=== PATIENT | female | born 1990 | race Caucasian/White ===

== ENCOUNTER 2019-02-02 16:55 | Emergency (ER) | payer BC ==
[2019-02-02 17:12] VITALS: BP 98/66
--- NOTE | 2019-02-02 17:15 | UC ---
Throat Pain/Nasal Jus HPI - HPI Summary HPI Summary: Patient presents to urgent care stating's for approximately 10 days she's had progressive sinus congestion postnasal drip. The last 4 days patient has had increased left ear pain has lost her voice. Patient states initially had some yellow drainage from her nose but now is more clear. Patient states she's noticed that when she has food of extreme temperatures: Heart she has increased pain in the left ear. Patient denies chest pain or shortness of breath. Patient has abdominal pain. Patient has been using ibuprofen but no other decongestants. No sick contacts. Patient does not have any hobbies related to chemicals or dust. Patient states she is not . Patient's medications as entered EMR by triage and was referred here. 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 Hx Last Menstrual Period: implant ?: No Pain Intensity: 2 - Allergies/Home Medications Allergies/Adverse Reactions: Allergies Allergy/AdvReac Type Severity Reaction Status Date / Time No Known Allergies Allergy Verified 02/02/19 17:03 Home Medications: Home Medications Levothyroxine TAB* [Synthroid 100 MCG TAB*] 1 tab PO DAILY 02/02/19 [History Confirmed 02/02/19] busPIRone TAB* [Buspar TAB*] 1 tab PO DAILY 02/02/19 [History Confirmed 02/02/19 ] carBAMazepine TAB(*) [Tegretol TAB(*)] 1 tab PO BID 02/02/19 [History Confirmed 02/02/19] hydrOXYzine HCL TAB* [Atarax TAB 50 MG *] 1 tab PO BEDTIME 02/02/19 [History Confirmed 02/02/19] traZODone TAB* [Desyrel TAB*] 1 tab PO BEDTIME 02/02/19 [History Confirmed 02/02] PMH/Surg Hx/FS Hx/Imm Hx - Surgical History Surgical History: None - Social History Alcohol Use: None Substance Use Type: Marijuana Smoking Status (MU): Never Smoked Tobacco Review of Systems All Other Systems Reviewed And Are Negative: Yes ENT: Positive: Nasal Discharge, Sinus Congestion, Sinus Pain/Tenderness, Other - laryngitis Physical Exam - Summary Physical Exam Summary: Vital Signs Reviewed: Yes A+Ox3, no distress, mild laryngitis Eyes: Conjunctiva Clear, AVE. EOM intact and full ENT: Hearing grossly normal right TM - no fluid, erythema left TM + fluid, mild erythema, no mastoid pain, turbinates inflammed and boggy, + PND, + TTP max sinus left + mild TTP with palp left upper molar - no erythema, fluctuance , drainage, edema mmoist, uvula midline, no exudate, no erythema Neck: Positive: Supple Respiratory: Positive: No respiratory distress, No accessory muscle use + CTA throughout no w/r Cardiovascular: RRR nl s1, s2 no m/r CBT <2 sec abd soft + BS nt/nd no guarding, no distension Musculoskeletal Exam: DELONG x 4 without difficulty Strength Intact, ROM Intact Neurological: Positive: Alert, + sensation throughout Psychological: Positive: Normal Response To examiner Skin: Positive: no rash, no ecchymosis Triage Information Reviewed: Yes Vital Signs: Initial Vital Signs Temp 99.8 F 02/02/19 17:08 Pulse 77 02/02/19 17:08 Resp 16 02/02/19 17:08 BP 98/66 02/02/19 17:08 Pulse Ox 99 02/02/19 17:08 Throat Pain/Nasal Course/Dx - Course Course Of Treatment: Patient presents to urgent care reporting 10 days of progressive left ear pain since congestion postnasal drip. The patient stated last 3-4 days left ear pain got much worse and she's been having some popping sounds. Patient denies any drainage. Patient taken Motrin but no decongestant. Patient denies fevers or chills. Patient does have fatigue. Patient works as a home health. On exam vital signs are stable. Patient does have fluid left ear. Sinuses are inflamed and boggy. Patient was some mild postnasal drip. Patient does have tenderness along the mastoid sinuses as well as along the left upper molar. No obvious carry. Discussed with patient at length. We'll start Flonase as well as antibiotic. Secretion discussed. Recommend humidified air. Return precautions. 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 Questions asked. Return precautions discussed. - Differential Dx/Diagnosis Provider Diagnosis: Left acute serous otitis media, Sinusitis Discharge ED - Sign-Out/Discharge Documenting (check all that apply): Patient Departure All imaging exams completed and their final reports reviewed: No Studies - Discharge Plan Condition: Stable Disposition: HOME Prescriptions: Amoxicillin/Clavulanate TAB* [Augmentin TAB 875*] 875 mg PO BID #20 tab Fluticasone NASAL SPRAY 50MCG* [Flonase NASAL SPRAY 50MCG*] 1 spray BOTH NARES DAILY #1 btl Patient Education Materials: Sinusitis (ED), Serous Otitis Media (ED) Forms: *Work Release Referrals: Kate Aguilar [employer] [Primary Care Provider] - Additional Instructions: - Stay well hydrated. Drink plenty of non-alcoholic, non-caffinated beverages. - Alternate ibuprofen (Advil, Motrin) 600mg and Tylenol every 3 hours for pain or fever. Take with food. Do NOT take for more than 4-5 days. - These infections are spread by secretions - do NOT share eating or drinking utensils - clean items you share with other people such as cell phones, computer mouse, TV remote, computer tablets,etc. Once you have been antibiotics for 2 days, change your toothbrush and your pillowcase. - get plenty of restful sleep - humidify the air in the room where you sleep - boil water, run a hot steam shower, vaporizer, cups of water by heat register -gargle and spit with warm salt water, 2-3 times a day - okay to take over the counter decongestant and cough medication - use nasal spray as prescribed - contact your doctor or return with questions or concerns - Billing Disposition and Condition Condition: STABLE Disposition: Home
== END 2019-02-02 17:43 | disposition home or self-care (01) ==
LOC: UCEAST 16:55
DX: J32.9 Chronic sinusitis, unspecified (principal); H65.02 Acute serous otitis media, left ear
CPT/HCPCS: 99212; G0463